=== PATIENT | female | born 1990 | race Caucasian/White ===

== ENCOUNTER 2023-05-04 04:59 | Inpatient (IN) | payer BC ==
[~2023-05-04 04:59] MED LIST: Bupivacaine 0.25% 10 ML SDV ONE
[2023-05-04] MEDS ORDERED: Calcium Carbonate 500 MG Tab.Chew PO PRN (05:07)
[2023-05-04] MEDS ORDERED: Nalbuphine 10 MG/0.5 ML Syringe IVPUSH PRN (05:07)
[2023-05-04] MEDS ORDERED: Oxytocin/Lactated Ringers 10 UNIT/1,000 ML BAG IV SCH ×2 (05:15)
[2023-05-04 05:38] LABS: BASOPHILS ABSOLUTE AUTO 0.03 K/mm3 (0.01-0.08); BASOPHILS PERCENT AUTO 0.4 % (0.1-1.2); EOSINOPHILS ABSOLUTE AUTO 0.12 K/mm3 (0.04-0.36); EOSINOPHILS PERCENT AUTO 1.4 (0.7-5.8); HEMATOCRIT 39.1 % (34.1-44.9); HEMOGLOBIN 13.1 gm/dl (11.2-15.7); IMMATURE GRAN ABSOLUTE AUTO 0.03 K/mm3 (0.00-0.10); IMMATURE GRAN PERCENT AUTO 0.4 % (<=1.0); LYMPHOCYTES ABSOLUTE AUTO 2.42 K/mm3 (1.18-3.74); LYMPHOCYTES PERCENT AUTO 28.6 % (19.3-51.7); MEAN CORPUSCULAR HEMOGLOBIN 29.3 pg (25.6-32.2); MEAN CORPUSCULAR HGB CONC 33.5 g/dl (32.2-35.5); MEAN CORPUSCULAR VOLUME 87.5 fl (79.4-94.8); MEAN PLATELET VOLUME 11.9 fl (9.4-12.3); MONOCYTES PERCENT AUTO 5.9 % (4.7-12.5); NEUTROPHILS ABSOLUTE AUTO 5.35 K/mm3 (1.56-6.13); NEUTROPHILS PERCENT AUTO 63.3 % (34.0-71.1); PLATELET COUNT,PLT 161 K/mm3 (182-369); RED BLOOD CELL COUNT 4.47 M/mm3 (3.98-5.22); WHITE BLOOD CELL COUNT,WBC 8.45 K/mm3 (3.98-10.04)
[2023-05-04] MEDS: Lactated Ringers 1,000 ML IV SCH ×3 (09:15→17:42)
[2023-05-04] MEDS ORDERED: fentaNYL 100 MCG/2 ML SDV EPIDUR PRN (11:57)
[2023-05-04] MEDS ORDERED: ePHEDrine 50 MG/ML SDV IVPUSH PRN (11:57)
[2023-05-04] MEDS ORDERED: diphenhydrAMINE 50 MG/ML SDV IVPUSH PRN (11:57)
[2023-05-04] MEDS: Bupivacaine/fentaNYL/NS 100 ML Bag EPIDUR PRN ×2 (12:06→20:22)
[2023-05-04] MEDS: Ondansetron 4 MG/2 ML SDV IVPUSH PRN ×2 (13:58→17:39)
[2023-05-04] MEDS ORDERED: Acetaminophen 325 MG Tab PO PRN ×2 (19:26→23:55)
[2023-05-04] MEDS ORDERED: Promethazine 12.5 MG Supp RECTAL PRN (20:01)
[2023-05-04] MEDS ORDERED: Promethazine 25 MG Supp RECTAL PRN (20:45)
[2023-05-04] MEDS ORDERED: Docusate Sodium 100 MG Cap PO PRN (23:55)
[2023-05-04] MEDS ORDERED: Ibuprofen 600 MG Tab PO PRN (23:55)
[2023-05-04] MEDS ORDERED: Witch Hazel Medicated Pads 40/Jar TOP PRN (23:55)
[2023-05-04] MEDS ORDERED: Benzocaine/Menthol 20%-0.5% Spray 78 GM Cannister TOP PRN (23:55)
[2023-05-06] MEDS ORDERED: Measles, Mumps & Rubella Vaccine 0.5 ML SDV SUBCUT ONE (10:00)
[2023-05-06 10:37] VITALS: BP 133/89; PULSE 68
== END 2023-05-06 11:28 | disposition home or self-care (01) | DRG 560 ==
LOC: JD.OBCHECK 04:59 → JD.OB 05:04 → JD.OBCHECK 05:07 → JD.OB 05:08 → OBSVTOIN 23:27 → JD.OB 23:28
PROVIDERS: ADMIT Obstetrics & Gynecology; ATTEND Obstetrics & Gynecology
PROC: 10E0XZZ Delivery of Products of Conception, External Approach (ICD-10-PCS; principal; 2023-05-04)
PROC: 3E0R3BZ Introduction of Anesthetic Agent into Spinal Canal, Percutaneous Approach (ICD-10-PCS; 2023-05-04)
PROC: 00HU33Z Insertion of Infusion Device into Spinal Canal, Percutaneous Approach (ICD-10-PCS; 2023-05-04)
DX: O48.0 Post-term pregnancy (principal); O42.02 Full-term premature rupture of membranes, onset of labor within 24 hours of rupture; O77.0 Labor and delivery complicated by meconium in amniotic fluid; Z37.0 Single live birth; Z3A.40 40 weeks gestation of pregnancy; Z79.899 Other long term (current) drug therapy; Z98.890 Other specified postprocedural states; Z28.39 Other underimmunization status
CPT/HCPCS: 36415; 51702; 59025; 85025; 86592; 86850; 86900; 86901; 90707; A9270-GY; J2405; J2590; J3010; J3490; J7120

== ENCOUNTER 2024-10-15 07:57 | Emergency (ER) | payer BC, MEDICAID ==
[2024-10-15 08:23] VITALS: BP 126/68; PULSE 108
[2024-10-15] MEDS ORDERED: Sodium Chloride 0.9% 10 ML Syringe FLUSH PRN (08:34)
[2024-10-15] MEDS: Sodium Chloride 0.9% 1,000 ML IV STA (09:17)
[2024-10-15] MEDS: Metoclopramide 10 MG/2 ML SDV IVPUSH ONE (09:17)
[2024-10-15 09:31] LABS: BASOPHILS PERCENT AUTO 0.3 % (0.0-1.0); EOSINOPHILS PERCENT AUTO 0.5 % (0.0-6.0); HEMATOCRIT 32.8 % (37.0-47.0); HEMOGLOBIN 11.4 gm/dl (12.0-16.0); IMMATURE GRAN ABSOLUTE AUTO 0.02 K/mm3 (0.00-0.05); IMMATURE GRAN PERCENT AUTO 0.3 % (0.0-0.4); LYMPHOCYTES ABSOLUTE AUTO 0.5 K/mm3 (1.0-4.8); LYMPHOCYTES PERCENT AUTO 7.6 % (24.0-44.0); MEAN CORPUSCULAR HEMOGLOBIN 29.7 pg (28.0-32.0); MEAN CORPUSCULAR HGB CONC 34.8 g/dl (32.0-36.0); MEAN CORPUSCULAR VOLUME 85.4 fl (83.0-99.0); MEAN PLATELET VOLUME 11.1 fl (9.4-12.3); MONOCYTES ABSOLUTE AUTO 0.5 K/mm3 (0.0-0.8); MONOCYTES PERCENT AUTO 7.4 % (0.0-8.0); NEUTROPHILS ABSOLUTE AUTO 5.4 K/mm3 (1.8-7.7); NEUTROPHILS PERCENT AUTO 83.9 % (41.0-71.0); PLATELET COUNT,PLT 122 K/mm3 (150-400); RED BLOOD CELL COUNT 3.84 M/mm3 (4.10-5.30); WHITE BLOOD CELL COUNT,WBC 6.45 K/mm3 (3.9-11.3)
[2024-10-15 09:50] LABS: A/G RATIO 0.7 (1-2); ALBUMIN 2.6 g/dl (3.4-5.0); ANION GAP 12.7 (5-15); BILIRUBIN TOTAL 0.4 mg/dL (0.2-1.0); CREATININE 0.6 mg/dL (0.55-1.02); EST CRCL DRUG DOSING (CG) 105.48 mL/min; POTASSIUM,K 2.7 mEq/L (3.5-5.1); PROTEIN TOTAL,TP 6.4 g/dl (6.4-8.2)
[2024-10-15] MEDS: Benzonatate 100 MG Cap PO ONE (10:34)
== END 2024-10-15 11:07 | disposition home or self-care (01) ==
LOC: JD.ED 07:57
DX: O99.513 Diseases of the respiratory system complicating pregnancy, third trimester (principal); J10.1 Influenza due to other identified influenza virus with other respiratory manifestations; O99.283 Endocrine, nutritional and metabolic diseases complicating pregnancy, third trimester; E87.6 Hypokalemia; Z3A.37 37 weeks gestation of pregnancy
CPT/HCPCS: 36415; 71045; 80053; 85025; 87428; 87651; 96361; 96374; 99285; A9270; J2765; J7030; 99284

== ENCOUNTER 2024-11-01 10:53 | Inpatient (IN) | payer BC, MEDICAID ==
[2024-11-01] MEDS ORDERED: Lidocaine 1% 50 ML MDV INJECT PRN (11:12)
[2024-11-01] MEDS ORDERED: Sodium Chloride 0.9% 10 ML Syringe FLUSH PRN (11:12)
[2024-11-01] MEDS ORDERED: Nalbuphine 10 MG/1 ML Vial IVPUSH PRN (11:12)
[2024-11-01 11:37] LABS: BASOPHILS PERCENT AUTO 0.3 % (0.0-1.0); EOSINOPHILS ABSOLUTE AUTO 0.1 K/mm3 (0.0-0.4); EOSINOPHILS PERCENT AUTO 1.1 % (0.0-6.0); HEMATOCRIT 33.6 % (37.0-47.0); HEMOGLOBIN 11.3 gm/dl (12.0-16.0); IMMATURE GRAN ABSOLUTE AUTO 0.04 K/mm3 (0.00-0.05); IMMATURE GRAN PERCENT AUTO 0.4 % (0.0-0.4); LYMPHOCYTES ABSOLUTE AUTO 1.8 K/mm3 (1.0-4.8); LYMPHOCYTES PERCENT AUTO 20.2 % (24.0-44.0); MEAN CORPUSCULAR HEMOGLOBIN 28.8 pg (28.0-32.0); MEAN CORPUSCULAR HGB CONC 33.6 g/dl (32.0-36.0); MEAN CORPUSCULAR VOLUME 85.5 fl (83.0-99.0); MEAN PLATELET VOLUME 10.3 fl (9.4-12.3); MONOCYTES ABSOLUTE AUTO 0.5 K/mm3 (0.0-0.8); MONOCYTES PERCENT AUTO 5.9 % (0.0-8.0); NEUTROPHILS ABSOLUTE AUTO 6.6 K/mm3 (1.8-7.7); NEUTROPHILS PERCENT AUTO 72.1 % (41.0-71.0); RED BLOOD CELL COUNT 3.93 M/mm3 (4.10-5.30)
[2024-11-01 11:38] LABS: PLATELET COUNT,PLT 236 K/mm3 (150-400)
[2024-11-01 11:43] LABS: CREATININE,URINE RAND 32.1 mg/dL (30.0-125.0)
[2024-11-01 11:44] LABS: PROTEIN,URINE RANDOM < 6.0 mg/dL (0.0-11.8)
[2024-11-01 12:00] LABS: ALANINE AMINOTRANSFERASE,ALT 21 U/L (14-59); ASPARTATE AMNIOTRANSFERASE,AST 17 U/L (15-37); BLOOD UREA NITROGEN,BUN 3 mg/dL (7-18); CREATININE 0.5 mg/dL (0.55-1.02); ESTIMATED GFR 127 mL/min (>60); LACTATE DEHYDROGENASE,LDH 173 U/L (81-234); URIC ACID 4.9 mg/dL (2.6-6.0)
[2024-11-01] MEDS: Lactated Ringers 1,000 ML IV SCH (12:41)
[2024-11-01] MEDS: Oxytocin/0.9 % Sodium Chloride 30 UNIT/500 ML BAG IV SCH ×2 (12:41→23:17)
[2024-11-01] MEDS ORDERED: diphenhydrAMINE 50 MG/ML SDV IVPUSH PRN (16:57)
[2024-11-01] MEDS ORDERED: ePHEDrine 50 MG/ML SDV IVPUSH PRN (16:57)
[2024-11-01] MEDS: Bupivacaine/fentaNYL/NS 100 ML Bag EPIDUR PRN (17:50)
[2024-11-01] MEDS: fentaNYL 100 MCG/2 ML SDV EPIDUR PRN (17:50)
[2024-11-01] MEDS: Promethazine 25 MG Supp RECTAL PRN (19:53)
[2024-11-01] MEDS ORDERED: Sodium Chloride 0.9% 10 ML Syringe FLUSH SCH (21:00)
[2024-11-01] MEDS ORDERED: ceFAZolin 2 GM in Sodium Chloride 0.9% 50 ML IV ONE (22:56)
[2024-11-01] MEDS ORDERED: Azithromycin 500 MG in Sodium Chloride 0.9% 250 ML IV ONE (22:56)
[2024-11-01] MEDS ORDERED: Citric Acid/Sodium Citrate Solution 30 ML Cup PO ONE (22:56)
[2024-11-01] MEDS ORDERED: Metoclopramide 10 MG/2 ML SDV IVPUSH ONE (22:56)
[2024-11-01] MEDS: Ondansetron 4 MG/2 ML SDV IVPUSH PRN (23:00)
[2024-11-02] MEDS ORDERED: Acetaminophen 325 MG Tab PO PRN (01:38)
[2024-11-02] MEDS ORDERED: Docusate Sodium 100 MG Cap PO PRN (01:38)
[2024-11-02] MEDS ORDERED: Benzocaine/Menthol 20%-0.5% Spray 78 GM Cannister TOP PRN (01:38)
[2024-11-02] MEDS ORDERED: Witch Hazel Medicated Pads 40/Jar TOP PRN (01:38)
[2024-11-02] MEDS: Ibuprofen 600 MG Tab PO SCH ×2 (03:16→04:44)
[2024-11-03 10:13] VITALS: BP 139/89; PULSE 70
== END 2024-11-03 09:37 | disposition home or self-care (01) | DRG 807 ==
LOC: JD.OBCHECK 10:53 → JD.OB 10:54 → JD.OBCHECK 11:12 → JD.OB 11:13 → OBSVTOIN 23:16 → JD.OB 23:17
PROVIDERS: ADMIT Obstetrics & Gynecology; ATTEND Obstetrics & Gynecology
PROC: 10907ZC Drainage of Amniotic Fluid, Therapeutic from Products of Conception, Via Natural or Artificial Opening (ICD-10-PCS; principal; 2024-11-01)
PROC: 3E033VJ Introduction of Other Hormone into Peripheral Vein, Percutaneous Approach (ICD-10-PCS; principal; 2024-11-01)
PROC: 3E0R3BZ Introduction of Anesthetic Agent into Spinal Canal, Percutaneous Approach (ICD-10-PCS; principal; 2024-11-01)
PROC: 10D07Z6 Extraction of Products of Conception, Vacuum, Via Natural or Artificial Opening (ICD-10-PCS; principal; 2024-11-01)
DX: O48.0 Post-term pregnancy (principal); Z37.0 Single live birth; O13.4 Gestational [pregnancy-induced] hypertension without significant proteinuria, complicating childbirth; O76 Abnormality in fetal heart rate and rhythm complicating labor and delivery; Z79.899 Other long term (current) drug therapy; Z98.890 Other specified postprocedural states; Z3A.40 40 weeks gestation of pregnancy
CPT/HCPCS: 36415; 51702; 59025; 59409; 82565; 82570; 83615; 84156; 84450; 84460; 84520; 84550; 85025; 86592; 86850; 86900; 86901; A9270-GY; J0665; J2405; J3010; J3490; J7120; J7999